=== PATIENT | female | born 2005 | race Caucasian/White ===

== ENCOUNTER 2024-03-21 19:17 | Emergency (ER) | payer OTHER, SELFPAY ==
[2024-03-21 19:29] VITALS: BP 133/72
[2024-03-21 19:39] VITALS: BP 126/68
[2024-03-21 19:40] VITALS: BMI 23.5
--- NOTE | 2024-03-21 19:49 | ED.GENMED ---
History of Present Illness
General
Chief Complaint: Allergic Reaction
Source: patient and family
Time Seen by Provider: 03/21/24 19:39
History of Present Illness
History of Present Illness:
18-year-old female presents to the emergency room complaining of a urticarial rash which is itchy. Rash began around 3:30 AM this morning. Patient has not had a previous allergic reaction. Patient denies any significant shortness of breath
sensation her throat is closing. She was actually seen by her primary care doctor earlier today and prescribed a Medrol Dosepak. She also has taken a couple doses of Benadryl 50 mg. Last dose was at 6:30 PM. However the urticarial rash does not
seem to have improved. She denies any recent illness.
Past History
Social History
Tobacco: Non-smoker
Alcohol: None
Drug: None
Phy Exam
Physical Exam
Physical Exam:
General: Awake, Alert, Oriented X3. No acute distress.
Vitals: unremarkable
Head: Atraumatic
Eyes: Pupils equal, EOMI
Throat: Airway intact, no exudates
Neck: Trachea midline
Lungs: Clear and equal b/l
Heart: Regular rate, no murmurs
Abd: Soft, Nontender, No pulsatile mass
Neuro: Nonfocal
Skin: Scattered urticarial rash
Extremities: pulses equal b/l, no edema
Course
Orders/Labs/Results
Orders:
Orders
03/21/24 19:47
EPINEPHrine PF [Adrenalin] 0.3 mg IM NOW STA
03/21/24 19:49
Famotidine [Pepcid] 40 mg PO NOW STA
Vital Signs
Initial and Last Documented VS:
Initial Vital Signs
Temp Pulse Resp BP Pulse Ox
97.8 F 54 18 133/72 99
03/21/24 19:29 03/21/24 19:29 03/21/24 19:29 03/21/24 19:29 03/21/24 19:29
Last Documented Vital Signs
Temp Pulse Resp BP Pulse Ox
97.8 F 54 18 106/53 100
03/21/24 19:29 03/21/24 19:29 03/21/24 19:29 03/21/24 21:11 03/21/24 21:10
MDM/Problems Addressed
Differential Diagnosis Includes:
Allergic reaction
MDM/Problems Addressed:
Patient presents with urticaria, sensation of swelling in her throat after exposure to some allergen today. She has never had a reaction such as this and is unsure what she might be having a reaction to. Patient treated by an outpatient doctor
with steroids and Benadryl. Here she received a dose of IM epi with significant improvement of her rash. Recommend she continue taking Benadryl and the steroid. Patient be discharged with a prescription for an EpiPen. Also given contact
information for allergy.
*Pulse Oximetry
Patient hypoxic: no
*Critical Care Note
Total Time (30-74mins, 75-104mins- exclusive of procedures): Not Applicable
ED Attending Note
-
Portions of this chart may have been created with voice recognition software.� Occasional wrong word or��sound alike� substitutions may have occurred due to the inherent limitations of voice recognition software.
Discharge Plan
Departure
Patient Disposition: Home (Routine Discharge)
Date of Disposition: 03/21/24
Time of Disposition: 21:01
Patient with high blood pressure during this ER visit?: No
Condition: Good
Discharge Problem:
Urticaria
Instructions: Hives (DC)
Prescriptions:
New
epinephrine [EpiPen 2-Adam] 0.3 mg/0.3 mL auto-injector
0.3 mg IM Q5-15M PRN (Reason: anaphylaxis) Qty: 2 0RF
No Action
sertraline [Zoloft] 25 mg Tablet
25 mg PO DAILY
Referrals:
Huseyin Sparrow MD [[facility]] -
Activity Restrictions/Additional Instructions:
You can take Benadryl every 6 hours as needed for the hives. Finish the steroid pack prescribed by your doctor.
Interventions
Interventions:
*Risk Screen - Suicide Last Done: 03/21/24 21:19
*General Assessment Last Done: 03/21/24 19:29
*Neglect/Abuse Screening Last Done: 03/21/24 19:40
ED- Fall Risk Assessment Last Done: 03/21/24 21:19
*ED COVID-19 Vaccine History Last Done: 03/21/24 21:19
*Nursing Disposition Last Done: 03/21/24 21:19
ED- Cardiac Assessment Last Done: 03/21/24 19:47
ED- Pulmonary Assessment Last Done: 03/21/24 19:45
ED-Skin Assessment Last Done: 03/21/24 19:47
Discharge Date and Time
Discharge Date/Time: 03/21/24 21:21
Print Language: [place]
[2024-03-21] MEDS: PEPCID 40 MG PO (19:54)
[2024-03-21] MEDS: ADRENALIN 0.3 MG IM (19:55)
[2024-03-21 21:11] VITALS: BP 106/53
== END 2024-03-21 21:21 | disposition home or self-care (01) ==
LOC: EMR 19:17
PROVIDERS: EMERGENCY PHYSICIAN Emergency Medicine; FAMILY PHYSICIAN Nurse Practitioner Family
DX: L50.0 Allergic urticaria (principal); Z88.1 Allergy status to other antibiotic agents
CPT/HCPCS: 99284; 96372

== ENCOUNTER → 2025-03-04 12:21 | Outpatient (REF) | payer OTHER, SELFPAY | LOC: DHSLP 12:21 | PROVIDERS: ATTENDING PHYSICIAN Internal Medicine; FAMILY PHYSICIAN Nurse Practitioner Family | DX: G47.19 Other hypersomnia (principal); R06.83 Snoring; G47.53 Recurrent isolated sleep paralysis | CPT/HCPCS: 95810 ==

== ENCOUNTER → 2025-03-05 14:43 | Outpatient (REF) | payer OTHER, SELFPAY | LOC: DHSLP 14:43 | PROVIDERS: ATTENDING PHYSICIAN Internal Medicine; FAMILY PHYSICIAN Nurse Practitioner Family | DX: G47.11 Idiopathic hypersomnia with long sleep time (principal) | CPT/HCPCS: 95805 ==